=== PATIENT | female | born 1945 | race Hispanic/Latino ===

== ENCOUNTER 2016-05-08 08:52 | Day surgery (SDC) | payer MEDICARE ==
[2016-04-14 10:11] VITALS: BMI 25.4
[2016-05-08] MEDS ORDERED: ceFAZolin IV 1 gm in Dextrose 50 ML IVPB ONE ×2 (13:48→14:02)
[2016-05-08] MEDS ORDERED: Bupivacaine/Epi 0.25%-1:200,000 10 ml PF inj IJ ONE (13:48)
[2016-05-08] MEDS ORDERED: Lidocaine 1% Inj (20ml) ONE (13:48)
[2016-05-08] MEDS ORDERED: Lactated Ringer's 1,000 ML IV ONE (14:05)
[2016-05-08] MEDS ORDERED: HYDROmorphone 0.5 mg/0.5 ml ISec IVP PRN (14:28)
[2016-05-08] MEDS ORDERED: Midazolam 2 MG/2 ML VIAL ONE (14:34)
[2016-05-08] MEDS ORDERED: Propofol 10 mg/ml Inj (20 ML) ONE (14:34)
--- NOTE | 2016-05-08 15:24 | PCM.SURG1 ---
Surgeon's Initial Post Op Note - Surgeon's Notes Surgeon: Dr. Olivia Financial Recording Clerk: Dr. Alexis PGY1 Type of Anesthesia: General Endo Pre-Operative Diagnosis: multiple lipomas of forearmx4(Right). lipoma on lateral portion of trapeziusx1(Right) Operative Findings: see operative report Post-Operative Diagnosis: see operative report Operation Performed: excision of multiple lipomas of forearm x4(right). excision of lipoma over lateral portion of trapezius (Right) Specimen/Specimens Removed: 4x lipomas of right forearm. 1x lipoma of lateral portion of trapezius Estimated Blood Loss: EBL {In ML}: 10 Blood Products Given: N/A Drains Used: No Drains Post-Op Condition: Good Date of Surgery/Procedure: 05/08/16 Time of Surgery/Procedure: 14:00
[2016-05-08 17:03] VITALS: RESP 16; TEMP 97.4
[2016-05-08 17:40] VITALS: BP 139/66; PULSE 66; O2SAT 100
--- NOTE | 2016-05-09 16:20 | OP ---
PROCEDURE DATE: 05/08/2016 PREOPERATIVE DIAGNOSIS: Multiple lipoma of right upper extremity and upper back. POSTOPERATIVE DIAGNOSIS: Multiple lipoma of right upper extremity and upper back. PROCEDURES: 1. Excision of lipoma of right upper back, 6 x 5 cm size. 2. Excision of lipoma of right forearm anterior upper, 2 x 2 cm size. 3. Excision of lipoma of right forearm anterior lower, 4 x 2 cm size. 4. Excision of lipoma of right forearm posterior upper, 2 x 2 cm size. 5. Excision of lipoma of right forearm posterior lower, 2 x 2 cm size. 6. Layered closure of right upper back wound 6x5 cm size. SURGEON: Ed Olivia MD BUNDLE PERSON: Aldo Alexis, PGY-1 resident. ANESTHESIA: Local anesthesia plus sedation. ESTIMATED BLOOD LOSS: Around 10 mL. DRAINS: None. PATHOLOGY: All the lipoma was sent separately. COMPLICATIONS: None. INTRAOPERATIVE FINDINGS: The patient had large lipoma of the right upper back as well as multiple lipoma on the right forearm anteriorly and posteriorly. INTRAOPERATIVE STEPS: This 71-year-old female was diagnosed with multiple lipomas of the right upper extremity as well as upper back and patient was consented for excision of lipoma and brought to the OR. Placed supine on the operating table. After induction of the anesthesia, patient was placed in left lateral position. The right upper back and right forearm was prepped and draped in a usual sterile fashion and a transverse 6 cm incision was made. Upper and lower flap was created and the lipoma was completely excised and it was sent off the table for the pathology and the wound of the right upper back was closed in multiple layers. Upper and lower flap was sutured to the underlying fascia, the subQ with 2-0 Vicryl, another layer of the subQ with 2-0 Vicryl, skin with 4-0 Monocryl as well as dry sterile dressing was applied. Now , the right upper extremity was also prepped and draped and a transverse incision was made around the right forearm anterior upper and lower, right forearm posterior upper and lower lipomas and upper and lower flap was created and all the lipoma was taken out and sent off the table for the pathology. All the wounds were irrigated, all the wounds were closed in 2 layers, the subQ with 2-0 Vicryl, skin with 4-0 Monocryl and dry sterile dressing was applied. The patient tolerated procedure well. Count of instrument was correct. There was no apparent complication. The patient was extubated in OR, sent to the postanesthesia care unit in stable condition. Ed Olivia MD cc: [id number] TT: 05/09/2016 16:19:45 sn PRIDE
== END 2016-05-08 17:36 | disposition home or self-care (01) ==
LOC: C.SDS 08:52
PROVIDERS: ATTEND Surgery Surgical Critical Care
DX: D17.1 Benign lipomatous neoplasm of skin and subcutaneous tissue of trunk (principal); D17.21 Benign lipomatous neoplasm of skin and subcutaneous tissue of right arm
CPT/HCPCS: 11406; 12032; 88304; J0690; J1885; J2250; J2704; J3010; J7120

== ENCOUNTER 2017-03-01 09:17 | Day surgery (SDC) | payer MEDICARE ==
[2016-04-14 10:14] VITALS: BMI 25.4
--- NOTE | 2017-03-01 12:14 | CP.SDSHP ---
Same Day Surgery H & P - History Proposed Procedure: colonoscopy Pre-Op Diagnosis: screening - Allergies Allergies: Allergies codeine Allergy (Severe, Verified 03/01/17 09:50) ANAPHYLAXIS latex Allergy (Intermediate, Verified 03/01/17 09:50) RASH - Physical Exam General Appearance: NAD Vital Signs: Vital Signs 03/01/17 03/01/17 09:45 10:00 Pulse Rate 64 64 Mental Status: Alert & Oriented x3 Neuro: WNL Heart: WNL Lungs: WNL GI: WNL - {Optional Preform as Required} Abdomen: WNL - Impression Pt. Evaluated Today:Candidate for Anesthesia & Procedure: Yes - Date & Time Date: 03/01/17 Time: 12:14 Short Stay Discharge - Short Stay Discharge Admitting Diagnosis/Reason for Visit: SCREENING Disposition: HOME/ ROUTINE
[2017-03-01] MEDS ORDERED: Propofol 10 mg/ml Inj (20 ML) ONE (12:20)
[2017-03-01] MEDS ORDERED: Lidocaine Hydrochloride 5 ML INJ ONE (12:20)
[2017-03-01] MEDS ORDERED: ePHEDrine 50 mg/ml Inj ONE (12:39)
[2017-03-01 13:17] VITALS: TEMP 97.8
[2017-03-01 13:44] VITALS: O2SAT 100
[2017-03-01 14:01] VITALS: BP 118/64; PULSE 69; RESP 14
== END 2017-03-01 13:50 | disposition home or self-care (01) ==
LOC: C.ENDO 09:17
PROVIDERS: ATTEND Internal Medicine Gastroenterology
DX: K64.8 Other hemorrhoids (principal); K57.30 Diverticulosis of large intestine without perforation or abscess without bleeding
CPT/HCPCS: 45378; J2704